=== PATIENT | female | born 1970 | race Caucasian/White ===

== ENCOUNTER → 2024-02-10 20:26 | Outpatient (REF) | payer OTHER, SELFPAY | LOC: MRI 20:26 | PROVIDERS: ATTENDING PHYSICIAN Physician Assistant Surgical; FAMILY PHYSICIAN Family Medicine | DX: M77.50 Other enthesopathy of unspecified foot and ankle (principal); M76.62 Achilles tendinitis, left leg; M25.70 Osteophyte, unspecified joint | CPT/HCPCS: 73721 ==

== ENCOUNTER → 2024-10-05 09:57 | Outpatient (REF) | payer OTHER, SELFPAY | LOC: RAD 09:57 | PROVIDERS: ATTENDING PHYSICIAN Obstetrics & Gynecology Female Pelvic Medicine and Reconstructive Surgery; FAMILY PHYSICIAN Family Medicine | DX: N93.8 Other specified abnormal uterine and vaginal bleeding (principal); Z01.812 Encounter for preprocedural laboratory examination; R39.15 Urgency of urination; L65.0 Telogen effluvium | CPT/HCPCS: 76830; 76856; 93005 ==

== ENCOUNTER 2024-11-29 21:43 | Emergency (ER) | payer OTHER, SELFPAY ==
[2024-11-29 21:47] VITALS: BP 131/93
[2024-11-29 22:21] LABS: % Basophils 0.9 % (0-2); % Eosinophils 0.8 % (0-6); % Immature Granulocytes 0.4 % (0-0.5); % Lymphocytes 24.6 % (20.5-51.1); % Monocytes 6.5 % (1.7-9.3); % Neutrophils 66.8 % (42.2-75.2); Absolute Basophils 0.1 10^3/uL (0-0.2); Absolute Eosinophils 0.1 10^3/uL (0-0.7); Absolute Lymphocytes 2.4 10^3/uL (1.2-3.4); Absolute Monocytes 0.6 10^3/uL (0.1-0.6); Absolute Neutrophils 6.5 10^3/uL (1.4-6.5); Hematocrit 35.8 % (37.0-47.0); Hemoglobin 12.4 g/dL (12.0-16.0); Mean Corp Hgb Conc. 34.6 g/dL (33.0-37.0); Mean Corpuscular Hgb 29.7 pg (27.0-31.0); Mean Corpuscular Volume 85.6 fL (81.0-99.0); Mean Platelet Volume 9.5 fL (7.4-10.4); Nucleated Red Blood Cells % 0 %; Platelet Count 353 10^3/uL (130-400); Red Blood Cell Count 4.18 10^6/uL (4.20-5.40); Red Cell Dist. Width 12.2 % (11.5-14.5); White Blood Cell Count 9.7 10^3/uL (4.8-10.8)
[2024-11-29 22:31] LABS: ALT (SGPT) 50 U/L (0-35); AST (SGOT) 35 U/L (14-36); Albumin 4.5 g/dl (3.5-5.0); Alkaline Phosphatase 94 U/L (38-126); Blood Urea Nitrogen 25 mg/dl (7-17); Calcium 9.3 mg/dl (8.4-10.2); Carbon Dioxide 31 mmol/L (22-30); Chloride 98 mmol/L (98-107); Glucose 109 mg/dl (70-99); Lipase 475 U/L (23-300); Potassium 4.4 mmol/L (3.5-5.1); Sodium 136 mmol/L (135-145); Total Bilirubin 0.5 mg/dl (0.2-1.3); Total Protein 7.1 g/dl (6.3-8.2); eGFR 58.97
[2024-11-29 23:53] VITALS: BP 128/74
[2024-11-30] MEDS: NSS 1000 IV (00:16)
--- NOTE | 2024-11-30 00:28 | ED.GENMED ---
History of Present Illness
<Mark Silva MD - Last Filed: 12/01/24 06:01>
General
Chief Complaint: Weakness
Source: patient
Exam Limitations: none
Time Seen by Provider: 11/29/24 23:42
History of Present Illness
History of Present Illness:
Patient complaining of general weakness episodes of dizziness lightheadedness near syncope and diarrhea for weeks. However symptoms have progressed significantly in the last 2 to 3 days. Patient had recent Achilles tendon surgery. She denies
chest pain or shortness of breath. She has some vague abdominal discomfort and nausea at times. Symptoms are moderate in nature. Quite unusual symptoms per the patient.
Past History
<Mark Silva MD - Last Filed: 12/01/24 06:01>
Past History
ED Past Medical History: Cancer (Renal cell carcinoma 2001 ), HTN and Other (Kidney stones )
ED Past Surgical History: Gynecological (D&C ), Orthopedic (Right toe ), Urological and Other (Nephrectomy )
Social History
Tobacco: Non-smoker
Alcohol: None
Drug: None
Personal:
Living: with family
Employment: Employed (dentist)
Family History
Family History: Hypertension and CAD
Review of Systems
<Mark Silva MD - Last Filed: 12/01/24 06:01>
Review of Systems
All Other Systems: Not applicable
Constitutional: Reports fatigue; Denies fever
Cardiac: Denies chest pain
ABD/GI: Denies bloody stools or black stools
Phy Exam
<Mark Silva MD - Last Filed: 12/01/24 06:01>
Physical Exam
Physical Exam:
GENERAL: Alert and oriented in no apparent distress
EYE: Orbits normal.
NECK: Supple
CARDIAC: Regular rate and rhythm without any obvious murmurs.
LUNGS: Clear breath sounds,normal
ABDOMEN: Soft, without focal tenderness or distention
NEUROLOGICAL: Alert and oriented , grossly non-focal
SKIN: Warm and dry, no rash or lesion, no discoloration, skin intact.
MUSCULOSKELETAL: No edema,no deformity.Good color boot left leg
PSYCH: Normal and appropriate interaction.
Course
<Mark Silva MD - Last Filed: 12/01/24 06:01>
Orders/Labs/Results
Orders:
Orders
11/29/24 21:53
EKG [Electrocardiogram (*1)] Urgent
Reason for Study: Fatigue / Weakness
11/29/24 21:54
EKG- Treatment ONCE
11/29/24 22:07
C-Reactive Protein Urgent
Comment: ADDED
Complete Blood Count/With Diff Urgent
Comprehensive Metabolic Panel Urgent
Creatine Phosphokinase Urgent
Erythrocyte Sed Rate Urgent
Comment: ADDED
Lipase Urgent
Magnesium Urgent
Phosphorus Urgent
TSH Reflex To Free T4 Urgent
Comment: ADD ON
11/29/24 23:59
Add On- LAB Urgent
Tests Added?: cpk,ths reflex t4,magnesium,phosphorous
11/30/24 00:00
CT Abd/Pel (IV only)-DH only Urgent
Comment:
Reason For Exam: Abdominal pain/elevated lipase
IV Insert/Care/Rem.- Treatment PRN
0.9% Sodium Chloride 1000 ml [Nss] 1,000 ml IV BOLUS
11/30/24 01:59
Add On- LAB Urgent
Tests Added?: esr,crp
11/30/24 06:59
PT Consult [Pt Eval And Treat] Urgent
Activity Level: Out of Bed-Early Mobility
11/30/24 07:06
Case Management Consult ONCE
Case Management Consult: Discharge Planning
Abnormal Lab Results
11/29/24
22:07
RBC 4.18 L 10^6/uL
(4.20-5.40)
Hct 35.8 L %
(37.0-47.0)
Carbon Dioxide 31 H mmol/L
(22-30)
BUN 25 H mg/dl
(7-17)
Creatinine 1.1 H mg/dL
(0.6-1.0)
Glucose 109 H mg/dl
(70-99)
ALT 50 H U/L
(0-35)
Lipase 475 H U/L
(23-300)
11/29/24 22:07
11/29/24 22:07
Vital Signs
Initial and Last Documented VS:
Initial Vital Signs
Temp Pulse Resp BP Pulse Ox
98.5 F 87 18 131/93 98
11/29/24 21:47 11/29/24 21:47 11/29/24 21:47 11/29/24 21:47 11/29/24 21:47
Last Documented Vital Signs
Temp Pulse Resp BP Pulse Ox
97.9 F 86 18 109/75 98
11/30/24 09:15 11/30/24 09:15 11/30/24 09:15 11/30/24 09:15 11/30/24 09:15
<Kevin Devine, DO - Last Filed: 11/30/24 07:04>
Orders/Labs/Results
Orders:
Orders
11/29/24 21:53
EKG [Electrocardiogram (*1)] Urgent
Reason for Study: Fatigue / Weakness
11/29/24 21:54
EKG- Treatment ONCE
11/29/24 22:07
C-Reactive Protein Urgent
Comment: ADDED
Complete Blood Count/With Diff Urgent
Comprehensive Metabolic Panel Urgent
Creatine Phosphokinase Urgent
Erythrocyte Sed Rate Urgent
Comment: ADDED
Lipase Urgent
Magnesium Urgent
Phosphorus Urgent
TSH Reflex To Free T4 Urgent
Comment: ADD ON
11/29/24 23:59
Add On- LAB Urgent
Tests Added?: cpk,ths reflex t4,magnesium,phosphorous
11/30/24 00:00
CT Abd/Pel (IV only)-DH only Urgent
Comment:
Reason For Exam: Abdominal pain/elevated lipase
IV Insert/Care/Rem.- Treatment PRN
0.9% Sodium Chloride 1000 ml [Nss] 1,000 ml IV BOLUS
11/30/24 01:59
Add On- LAB Urgent
Tests Added?: esr,crp
11/30/24 06:59
PT Consult [Pt Eval And Treat] Urgent
Activity Level: Out of Bed-Early Mobility
11/30/24 07:06
Case Management Consult ONCE
Case Management Consult: Discharge Planning
Abnormal Lab Results
11/29/24
22:07
RBC 4.18 L 10^6/uL
(4.20-5.40)
Hct 35.8 L %
(37.0-47.0)
Carbon Dioxide 31 H mmol/L
(22-30)
BUN 25 H mg/dl
(7-17)
Creatinine 1.1 H mg/dL
(0.6-1.0)
Glucose 109 H mg/dl
(70-99)
ALT 50 H U/L
(0-35)
Lipase 475 H U/L
(23-300)
11/29/24 22:07
11/29/24 22:07
Vital Signs
Initial and Last Documented VS:
Initial Vital Signs
Temp Pulse Resp BP Pulse Ox
98.5 F 87 18 131/93 98
11/29/24 21:47 11/29/24 21:47 11/29/24 21:47 11/29/24 21:47 11/29/24 21:47
Last Documented Vital Signs
Temp Pulse Resp BP Pulse Ox
97.9 F 86 18 109/75 98
11/30/24 09:15 11/30/24 09:15 11/30/24 09:15 11/30/24 09:15 11/30/24 09:15
<Alonzo Monge DO - Last Filed: 11/30/24 08:55>
Orders/Labs/Results
Orders:
Orders
11/29/24 21:53
EKG [Electrocardiogram (*1)] Urgent
Reason for Study: Fatigue / Weakness
11/29/24 21:54
EKG- Treatment ONCE
11/29/24 22:07
C-Reactive Protein Urgent
Comment: ADDED
Complete Blood Count/With Diff Urgent
Comprehensive Metabolic Panel Urgent
Creatine Phosphokinase Urgent
Erythrocyte Sed Rate Urgent
Comment: ADDED
Lipase Urgent
Magnesium Urgent
Phosphorus Urgent
TSH Reflex To Free T4 Urgent
Comment: ADD ON
11/29/24 23:59
Add On- LAB Urgent
Tests Added?: cpk,ths reflex t4,magnesium,phosphorous
11/30/24 00:00
CT Abd/Pel (IV only)-DH only Urgent
Comment:
Reason For Exam: Abdominal pain/elevated lipase
IV Insert/Care/Rem.- Treatment PRN
0.9% Sodium Chloride 1000 ml [Nss] 1,000 ml IV BOLUS
11/30/24 01:59
Add On- LAB Urgent
Tests Added?: esr,crp
11/30/24 06:59
PT Consult [Pt Eval And Treat] Urgent
Activity Level: Out of Bed-Early Mobility
11/30/24 07:06
Case Management Consult ONCE
Case Management Consult: Discharge Planning
Abnormal Lab Results
11/29/24
22:07
RBC 4.18 L 10^6/uL
(4.20-5.40)
Hct 35.8 L %
(37.0-47.0)
Carbon Dioxide 31 H mmol/L
(22-30)
BUN 25 H mg/dl
(7-17)
Creatinine 1.1 H mg/dL
(0.6-1.0)
Glucose 109 H mg/dl
(70-99)
ALT 50 H U/L
(0-35)
Lipase 475 H U/L
(23-300)
11/29/24 22:07
11/29/24 22:07
Vital Signs
Initial and Last Documented VS:
Initial Vital Signs
Temp Pulse Resp BP Pulse Ox
98.5 F 87 18 131/93 98
11/29/24 21:47 11/29/24 21:47 11/29/24 21:47 11/29/24 21:47 11/29/24 21:47
Last Documented Vital Signs
Temp Pulse Resp BP Pulse Ox
97.9 F 86 18 109/75 98
11/30/24 09:15 11/30/24 09:15 11/30/24 09:15 11/30/24 09:15 11/30/24 09:15
<Mark Silva MD - Last Filed: 12/01/24 06:01>
MDM/Problems Addressed
Differential Diagnosis Includes:
Patient complaining of general weakness myalgias fatigue nausea diarrhea. Clinically do not have an obvious explanation that puts all the symptoms together. Would consider myositis, thyroid disease, dehydration, viral syndrome. Workup in progress
<Mark Silva MD - Last Filed: 12/01/24 06:01>
*Pulse Oximetry
Patient hypoxic: no
*EKG
Interpreted by ED Provider?: Yes
Interpretation: normal
Comparison EKG: no changes
Heart Rate: 91
Rate: normal
Rhythm: sinus
Tyner: normal axis
Interval: normal interval
QRS Pattern: normal QRS
Ischemia: no ischemia
*Critical Care Note
Total Time (30-74mins, 75-104mins- exclusive of procedures): Not Applicable
Data Reviewed
Review of Other/Old Records Reveals: Labs, Records and Testing
<Mark Silva MD - Last Filed: 12/01/24 06:01>
Update Note
Update Note:
Patient mostly seems to be complaining of muscle leg pain myalgias general fatigue and weakness and dizziness. I cannot find a serious etiology. Clearly with the mild lipase elevation GI symptoms she has some underlying issue however I cannot find
an acute reason that she needs to stay in the hospital at this time. Outpatient follow-up closely would be reasonable. However if she is too uncomfortable to go her 2-week ago admission was offered. We will do a CRP and ESR for completeness
<Kevin Devine DO - Last Filed: 11/30/24 07:04>
Update Note
Update Note:
Patient mostly seems to be complaining of muscle leg pain myalgias general fatigue and weakness and dizziness. I cannot find a serious etiology. Clearly with the mild lipase elevation GI symptoms she has some underlying issue however I cannot find
an acute reason that she needs to stay in the hospital at this time. Outpatient follow-up closely would be reasonable. However if she is too uncomfortable to go her 2-week ago admission was offered. We will do a CRP and ESR for completeness
Patient reexamined. She has been having weakness and mobility issues since she has had Achilles tendon surgery. She lives in a 3 story home and has been unable to ambulate effectively up and down the steps. Patient has had mild abdominal pain.
CT scan as follows
IMPRESSION
Compared to 01/21/2022
No specific findings to account for the patient's abdominal pain.
Normal appendix.
No renal or obstructing ureteral stones. No hydronephrosis or hydroureter.
Bowel is without evidence of obstruction.
Cholecystectomy
Status post left nephrectomy. Indeterminate probable left adrenal nodule in the left upper quadrant measuring 2.2 x 2.1 x 2.1 cm
Given patient's mobility status and her findings, despite normal CT scan and relatively normal lab work, I did offer her admission to the hospital. At this point she does not want to be admitted. My concern is that she has not been able to
ambulate effectively in her home she may need a rehab assignment. Patient did agree to a physical therapy consult. She does understand that while not an admission right now, this would likely end in admission if she cannot ambulate satisfactorily.
Patient signed out to day doc
<Alonzo Monge, - Last Filed: 11/30/24 08:55>
Update Note
Update Note:
Patient mostly seems to be complaining of muscle leg pain myalgias general fatigue and weakness and dizziness. I cannot find a serious etiology. Clearly with the mild lipase elevation GI symptoms she has some underlying issue however I cannot find
an acute reason that she needs to stay in the hospital at this time. Outpatient follow-up closely would be reasonable. However if she is too uncomfortable to go her 2-week ago admission was offered. We will do a CRP and ESR for completeness
Patient reexamined. She has been having weakness and mobility issues since she has had Achilles tendon surgery. She lives in a 3 story home and has been unable to ambulate effectively up and down the steps. Patient has had mild abdominal pain.
CT scan as follows
IMPRESSION
Compared to 01/21/2022
No specific findings to account for the patient's abdominal pain.
Normal appendix.
No renal or obstructing ureteral stones. No hydronephrosis or hydroureter.
Bowel is without evidence of obstruction.
Cholecystectomy
Status post left nephrectomy. Indeterminate probable left adrenal nodule in the left upper quadrant measuring 2.2 x 2.1 x 2.1 cm
Given patient's mobility status and her findings, despite normal CT scan and relatively normal lab work, I did offer her admission to the hospital. At this point she does not want to be admitted. My concern is that she has not been able to
ambulate effectively in her home she may need a rehab assignment. Patient did agree to a physical therapy consult. She does understand that while not an admission right now, this would likely end in admission if she cannot ambulate satisfactorily.
Patient signed out to day doc
07 07 patient reassessed. She appears well and is moving in the bed normally. Patient just reports that over several weeks has had generalized weakness. She also has had achiness and point tenderness. Has been recovering from Achilles surgery.
States she normally is able to lift her daughter's wheelchair but has had difficulty with that. Patient had labs and a CT. Also given IV fluids. Labs grossly unremarkable. CT negative. Long discussion with the patient. Unclear etiology for
symptoms. Inflammatory markers negative. CK negative. to be seen by PT and case mgmt but ok for d/c.
ED Attending Note
<Mark Silva MD - Last Filed: 12/01/24 06:01>
-
Portions of this chart may have been created with voice recognition software.� Occasional wrong word or��sound alike� substitutions may have occurred due to the inherent limitations of voice recognition software.
Discharge Plan
Departure
Patient Disposition: Home (Routine Discharge)
Date of Disposition: 11/30/24
Time of Disposition: 08:49
Patient with high blood pressure during this ER visit?: No
Discharge Problem:
Myalgias/weakness, Dizziness, Elevated lipase, Adrenal nodule
Instructions: Generalized Weakness (DC), Dizziness in adults - ED discharge instructions, BLOOD PRESSURE
Prescriptions:
No Action
multivitamin 1 EACH tablet
3 ea PO DAILY
Patient Comments:
Flinstones Multivitamin
amoxicillin 500 MG capsule
500 mg PO
Patient Comments:
Pt. took last dose on 07/03
acetaminophen 325 MG tablet
325 mg PO
sertraline 50 MG tablet
50 mg PO DAILY
cholecalciferol (vitamin D3) [Vitamin D3] 1,000 UNIT tablet
1,000 unit PO DAILY
Bifidobacterium infantis [Align (B.infantis)] 4 MG capsule
4 mg PO DAILY
amoxicillin-pot clavulanate 875 MG/125 MG tablet
1 tab PO Q12 Qty: 14 0RF
clindamycin HCl 150 MG capsule
450 mg PO Q6 7 Days 0RF
Referrals:
May Boswell MD [Family Provider] - Follow up in 2-3 days
Activity Restrictions/Additional Instructions:
Please see your doctor in the next 3 to 5 days for follow-up and reevaluation and further workup if necessary. Return immediately for worsening symptoms, fevers, intractable vomiting or any other concerns.
Interventions
Interventions:
*Risk Screen - Suicide Last Done: 11/29/24 21:52
*General Assessment Last Done: 11/29/24 21:52
*Neglect/Abuse Screening Last Done: 11/29/24 21:52
ED- Fall Risk Assessment Last Done: 11/30/24 09:24
*ED COVID-19 Vaccine History Last Done: 11/29/24 21:52
*Nursing Disposition Last Done: 11/30/24 09:15
ED- Cardiac Assessment Last Done: 11/30/24 09:24
ED- Neurological Assessment Last Done: 11/30/24 09:24
ED- Pulmonary Assessment Last Done: 11/30/24 09:24
Discharge Date and Time
Discharge Date/Time: 11/30/24 09:15
Print Language: COLOMBIAN
[2024-11-30 01:27] LABS: Creatine Phosphokinase 50 U/L (30-135); Magnesium 1.6 mg/dl (1.6-2.3); Phosphorus 4.5 mg/dl (2.5-4.5)
[2024-11-30 02:27] VITALS: BP 124/71
[2024-11-30 03:06] LABS: Erythrocyte Sed Rate 10 mm/hour (0-20)
[2024-11-30 03:33] LABS: C-Reactive Protein < 5.00 mg/L (0.0-10.00)
[2024-11-30 04:03] LABS: TSH Reflex To Free T4 1.52 uIU/ml (0.47-4.68)
[2024-11-30 06:33] VITALS: BP 105/66
[2024-11-30 08:00] VITALS: BP 109/75
--- NOTE | 2024-11-30 09:00 | PTCARENOTE ---
Patient AA0x3, tearful at times. Patient fearful of falling again. Patient OOB with supervision. RLE with splint and mac wrap CDI. Patient has generalized body aches, denies need for pain med at present. Patient tolerating clear liquids and cookie.
Discharge instructions reviewed with patient, spouse is on his way to pick her up.
[2024-11-30 09:15] VITALS: BP 109/75
--- NOTE | 2024-11-30 15:38 | CM ---
CM consult for dc planning
Lengthy bedside meeting with pt
She had elective surgery 3 weeks prior
Lives in a multi story home and has a W/C bound child at home
Noted she didn't anticipate recovery would be this difficult
She was set up with [facility] but declined visits due to $80 copay/visit
She noted financial difficulties as she has not been working
Noting her spouse is employed and they do not qualify for MA or assistance services
Discussion with [facility]- payment plan option available to pt
She has accepted service from [facility]
== END 2024-11-30 09:15 | disposition home or self-care (01) ==
LOC: EMR 21:43
PROVIDERS: EMERGENCY PHYSICIAN Emergency Medicine; FAMILY PHYSICIAN Family Medicine
DX: R55 Syncope and collapse (principal); R53.1 Weakness; R11.0 Nausea; R19.7 Diarrhea, unspecified; R10.9 Unspecified abdominal pain; M79.10 Myalgia, unspecified site; R74.8 Abnormal levels of other serum enzymes; R53.83 Other fatigue; I10 Essential (primary) hypertension; Z98.890 Other specified postprocedural states; Z85.528 Personal history of other malignant neoplasm of kidney; Z87.442 Personal history of urinary calculi; Z90.5 Acquired absence of kidney; Z91.040 Latex allergy status; Z91.018 Allergy to other foods
CPT/HCPCS: 99285; 96360; 74177; 80053; 82550; 83690; 83735; 84100; 84443; 85025; 85652; 86140; 93005; Q9967

== ENCOUNTER → 2024-12-30 13:13 | Outpatient (REF) | payer OTHER, SELFPAY | LOC: RAD 13:13 | PROVIDERS: ATTENDING PHYSICIAN Internal Medicine Hematology & Oncology; FAMILY PHYSICIAN Nurse Practitioner Family | DX: I10 Essential (primary) hypertension (principal); D68.59 Other primary thrombophilia; D68.9 Coagulation defect, unspecified; M79.10 Myalgia, unspecified site | CPT/HCPCS: 77075 ==

== ENCOUNTER → 2025-01-06 08:12 | Outpatient (REF) | payer OTHER, SELFPAY | LOC: RAD 08:12 | PROVIDERS: ATTENDING PHYSICIAN Internal Medicine Hematology & Oncology; FAMILY PHYSICIAN Family Medicine | DX: D68.59 Other primary thrombophilia (principal); D68.9 Coagulation defect, unspecified; M79.10 Myalgia, unspecified site | CPT/HCPCS: 78306; A9503 ==

== ENCOUNTER → 2025-01-26 13:22 | Outpatient (REF) | payer OTHER, SELFPAY | LOC: RAD 13:22 | PROVIDERS: ATTENDING PHYSICIAN Student in an Organized Health Care Education/Training Program; FAMILY PHYSICIAN Nurse Practitioner Family | DX: L40.50 Arthropathic psoriasis, unspecified (principal); L40.9 Psoriasis, unspecified; M25.50 Pain in unspecified joint; M25.60 Stiffness of unspecified joint, not elsewhere classified | CPT/HCPCS: 72202 ==

== ENCOUNTER 2025-02-16 09:57 | Outpatient (RCR) | payer OTHER, SELFPAY | END 2025-02-16 23:59 | disposition home or self-care (01) | LOC: RPT 09:57 | PROVIDERS: ATTENDING PHYSICIAN Student in an Organized Health Care Education/Training Program; FAMILY PHYSICIAN Family Medicine | DX: Z47.89 Encounter for other orthopedic aftercare (principal); M25.572 Pain in left ankle and joints of left foot; Z73.6 Limitation of activities due to disability; R26.89 Other abnormalities of gait and mobility; R20.0 Anesthesia of skin; R20.2 Paresthesia of skin | CPT/HCPCS: 97110; 97140; 97163; 97535 ==

== ENCOUNTER 2025-03-20 06:30 | Day surgery (SDC) | payer OTHER, SELFPAY | END 2025-03-20 13:53 | disposition home or self-care (01) | LOC: GI 06:30 | PROVIDERS: ATTENDING PHYSICIAN Internal Medicine | DX: Z12.11 Encounter for screening for malignant neoplasm of colon (principal); K64.9 Unspecified hemorrhoids; K57.30 Diverticulosis of large intestine without perforation or abscess without bleeding; R19.7 Diarrhea, unspecified; D12.2 Benign neoplasm of ascending colon; D12.3 Benign neoplasm of transverse colon; Z86.0100 Personal history of colon polyps, unspecified | CPT/HCPCS: 45385; 45380; 88305 ==

== ENCOUNTER 2025-03-22 18:49 | Outpatient (RCR) | payer OTHER, SELFPAY | END 2025-03-22 23:59 | disposition home or self-care (01) | LOC: RPT 18:49 | PROVIDERS: ATTENDING PHYSICIAN Student in an Organized Health Care Education/Training Program; FAMILY PHYSICIAN Family Medicine | DX: Z47.89 Encounter for other orthopedic aftercare (principal); M25.572 Pain in left ankle and joints of left foot; Z73.6 Limitation of activities due to disability; R26.89 Other abnormalities of gait and mobility; R20.0 Anesthesia of skin; R20.2 Paresthesia of skin | CPT/HCPCS: 97110; 97140; 97535 ==

== ENCOUNTER → 2025-03-30 13:08 | Outpatient (REF) | payer OTHER, SELFPAY | LOC: MRI 13:08 | PROVIDERS: ATTENDING PHYSICIAN Psychiatry & Neurology Neurology; FAMILY PHYSICIAN Family Medicine | DX: R42 Dizziness and giddiness (principal) | CPT/HCPCS: 70551 ==

== ENCOUNTER 2025-03-31 06:18 | Day surgery (SDC) | payer OTHER, SELFPAY ==
[2025-03-31 12:40] VITALS: BMI 26.3
[2025-03-31 12:41] VITALS: BMI 26.3
[2025-03-31 12:42] VITALS: BP 115/76
[2025-03-31 16:03] VITALS: BP 113/62
[2025-03-31 16:15] VITALS: BP 111/70
[2025-03-31 16:30] VITALS: BP 114/68
== END 2025-03-31 16:52 | disposition home or self-care (01) ==
LOC: GI 06:18
PROVIDERS: ATTENDING PHYSICIAN Internal Medicine Gastroenterology
DX: D12.2 Benign neoplasm of ascending colon (principal); K64.0 First degree hemorrhoids
CPT/HCPCS: 45390; 88305

== ENCOUNTER 2025-04-19 18:57 | Outpatient (RCR) | payer OTHER, SELFPAY | END 2025-04-19 23:59 | disposition home or self-care (01) | LOC: RPT 18:57 | PROVIDERS: ATTENDING PHYSICIAN Student in an Organized Health Care Education/Training Program; FAMILY PHYSICIAN Family Medicine | DX: Z47.89 Encounter for other orthopedic aftercare (principal); M25.572 Pain in left ankle and joints of left foot; Z73.6 Limitation of activities due to disability; R26.89 Other abnormalities of gait and mobility; R20.0 Anesthesia of skin; R20.2 Paresthesia of skin | CPT/HCPCS: 97110; 97140 ==

== ENCOUNTER 2025-05-01 18:59 | Outpatient (RCR) | payer OTHER, SELFPAY | END 2025-05-02 06:38 | disposition home or self-care (01) | LOC: RPT 18:59 | PROVIDERS: ATTENDING PHYSICIAN Student in an Organized Health Care Education/Training Program; FAMILY PHYSICIAN Family Medicine | DX: Z47.89 Encounter for other orthopedic aftercare (principal); M25.572 Pain in left ankle and joints of left foot; Z73.6 Limitation of activities due to disability; R26.89 Other abnormalities of gait and mobility; R20.0 Anesthesia of skin; R20.2 Paresthesia of skin | CPT/HCPCS: 97110; 97140; 97535 ==

== ENCOUNTER → 2025-06-10 10:18 | Outpatient (REF) | payer OTHER, SELFPAY | LOC: MRI 3T 10:18 | PROVIDERS: ATTENDING PHYSICIAN Student in an Organized Health Care Education/Training Program; FAMILY PHYSICIAN Family Medicine | DX: M92.62 Juvenile osteochondrosis of tarsus, left ankle (principal) | CPT/HCPCS: 73721 ==

== ENCOUNTER → 2025-09-25 16:00 | Outpatient (REF) | payer OTHER, SELFPAY | LOC: PAVMRI 16:00 | PROVIDERS: ATTENDING PHYSICIAN Specialist; FAMILY PHYSICIAN Nurse Practitioner Family | DX: M75.01 Adhesive capsulitis of right shoulder (principal); M75.41 Impingement syndrome of right shoulder | CPT/HCPCS: 73221 ==

== ENCOUNTER 2025-10-03 06:39 | Day surgery (SDC) | payer OTHER, SELFPAY | END 2025-10-03 10:20 | disposition home or self-care (01) | LOC: GI 06:39 | PROVIDERS: ATTENDING PHYSICIAN Internal Medicine | DX: Z12.11 Encounter for screening for malignant neoplasm of colon (principal); K63.5 Polyp of colon; K57.30 Diverticulosis of large intestine without perforation or abscess without bleeding; K64.9 Unspecified hemorrhoids; Z86.0101 Personal history of adenomatous and serrated colon polyps | CPT/HCPCS: 45385; 45380; 88305 ==